=== PATIENT | male | born 1965 | race Hispanic/Latino ===

== ENCOUNTER 2017-03-23 12:30 | Emergency (ER) | payer MEDICAID, OTHER ==
[2017-03-23 12:30] VITALS: BMI 23.0
[2017-03-23 13:10] VITALS: BP 114/73; PULSE 66; RESP 20; TEMP 98.1; O2SAT 98
--- NOTE | 2017-03-23 13:28 | C.PDOC ---
History Of Present Illness 51 y/o male presents to ED with complaints of colic ellis umbilical pain since this morning. At ED patient states pain resolved prior to arrival and denies fever, chills, nausea, vomiting, back pain or any other complaints at this time. Time Seen by Provider: 03/23/17 13:17 Chief Complaint (Nursing): Abdominal Pain History Per: Patient History/Exam Limitations: no limitations Onset/Duration Of Symptoms: Hrs Current Symptoms Are (Timing): Still Present Location Of Pain/Discomfort: Periumbilical Past Medical History Reviewed: Historical Data, Nursing Documentation, Vital Signs Vital Signs: Last Vital Signs Temp 98.1 F 03/23/17 13:08 Pulse 66 03/23/17 13:08 Resp 20 03/23/17 13:08 BP 114/73 03/23/17 13:08 Pulse Ox 98 03/23/17 13:29 - Medical History PMH: No Chronic Diseases Surgical History: No Surg Hx - [facility] Procedures IMMOBILIZ/WOUND ATTN NEC (12/04/06) Family History: States: No Known Family Hx - Social History Hx Tobacco Use: Yes Hx Alcohol Use: Yes Hx Substance Use: Yes - Immunization History Hx Tetanus Toxoid Vaccination: No (not sure of last tetanus) Hx Influenza Vaccination: No Hx Pneumococcal Vaccination: No Review Of Systems Constitutional: Negative for: Fever, Chills Gastrointestinal: Positive for: Abdominal Pain. Negative for: Nausea, Vomiting Genitourinary: Negative for: Dysuria, Hematuria Musculoskeletal: Negative for: Back Pain Skin: Negative for: Rash Physical Exam - Physical Exam Appears: Non-toxic, No Acute Distress Skin: Warm, Dry, No Rash Head: Atraumatic, Normacephalic Oral Mucosa: Moist Neck: Normal ROM, Supple Cardiovascular: Rhythm Regular Respiratory: Normal Breath Sounds, No Rales, No Rhonchi, No Wheezing Gastrointestinal/Abdominal: Soft, No Guarding, No Rebound, Other (Dull to percussion, right abdomen tympanic) Extremity: Normal ROM, Capillary Refill (<2 seconds) Neurological/Psych: Oriented x3 ED Course And Treatment O2 Sat by Pulse Oximetry: 98 (RA) Pulse Ox Interpretation: Normal Medical Decision Making Medical Decision Making: periumbilical colic, resolved [employer]. dull to percussion in R abd, suspect constip pt agrees to empiric tx with laxative and return later PRN, declines w/u w informed consent. Disposition Doctor Will See Patient In The: Office Counseled Patient/Family Regarding: Studies Performed - Disposition Referrals: [facility] [Outside] Disposition: HOME/ ROUTINE Disposition Time: 13:29 Condition: GOOD Additional Instructions: trial a laxative now- 1 bottle of Mag Citrate- and re-eval after 2-3 bowel movements. Return to ED as needed continue diet and exercise changes as needed. Prescriptions: Magnesium Citrate [[facility] Magnesium Citrate] 300 ml PO ONCE PRN #1 bottle PRN Reason: Constipation Instructions: Constipation (ED), Gas and Bloating (ED) Forms: [employer] ([place]ese) - Clinical Impression Clinical Impression: Abdominal colic - Scribe Statement The provider has reviewed the documentation as recorded by the Scribotilia Selby All medical record entries made by the Isiahibe were at my direction and personally dictated by me. I have reviewed the chart and agree that the record accurately reflects my personal performance of the history, physical exam, medical decision making, and the department course for this patient. I have also personally directed, reviewed, and agree with the discharge instructions and disposition.
== END 2017-03-23 13:34 | disposition home or self-care (01) ==
LOC: C.ER 12:30
DX: R10.84 Generalized abdominal pain (principal)

== ENCOUNTER 2017-09-03 15:26 | Emergency (ER) | payer MEDICAID, OTHER ==
[2017-09-03 15:29] VITALS: BMI 23.7
[2017-09-03] MEDS ORDERED: Dexamethasone 4 mg/1 ml IM STA (15:56)
--- NOTE | 2017-09-03 16:57 | C.PDOC ---
History Of Present Illness 52-year-old male, presents to the emergency department with complaints of back pain to lower right back, radiating down right leg, ongoing for the past several days. Patient states it worsens with walking and movement. Denies numbness/weakness, bladder/bowel incontinence, nausea/vomiting, symptoms, dizziness, visual changes, facial droop or any other associated symptoms. No other complaints at this time,. Time Seen by Provider: 09/03/17 15:44 Chief Complaint (Nursing): Lower Extremity Problem/Injury History Per: Patient History/Exam Limitations: no limitations Current Symptoms Are (Timing): Still Present Severity: Moderate Pain Scale Rating Of: 7 Recent travel outside of the [place]: No Past Medical History Reviewed: Historical Data, Nursing Documentation, Vital Signs Vital Signs: Last Vital Signs Temp 98 F 09/03/17 17:13 Pulse 72 09/03/17 17:13 Resp 16 09/03/17 17:13 BP 128/78 09/03/17 17:13 Pulse Ox 97 09/03/17 21:50 - [facility] Procedures IMMOBILIZ/WOUND ATTN NEC (12/04/06) Family History: States: No Known Family Hx - Social History Hx Tobacco Use: Yes Hx Alcohol Use: Yes Hx Substance Use: Yes - Immunization History Hx Tetanus Toxoid Vaccination: No (not sure of last tetanus) Hx Influenza Vaccination: No Hx Pneumococcal Vaccination: No Review Of Systems Constitutional: Negative for: Fever, Chills Respiratory: Negative for: Cough, Shortness of Breath Gastrointestinal: Negative for: Nausea, Vomiting Musculoskeletal: Positive for: Back Pain Skin: Negative for: Rash Neurological: Negative for: Weakness, Numbness, Headache, Dizziness Physical Exam - Physical Exam Appears: Non-toxic, No Acute Distress Skin: Normal Color, Warm, Dry, No Rash Head: Atraumatic, Normacephalic Eye(s): bilateral: Normal Inspection, PERRL, EOMI Nose: Normal Oral Mucosa: Moist Lips: Normal Appearing Neck: Normal ROM, No Midline Cervical Tenderness, No Paracervical Tenderness, No Step Off Deformity, Supple Chest: Symmetrical, No Tenderness Cardiovascular: Rhythm Regular, No Friction Rub, No Murmur Respiratory: Normal Breath Sounds, No Accessory Muscle Use, No Rales, No Rhonchi Gastrointestinal/Abdominal: Soft, No Tenderness Back: No CVA Tenderness, Paraspinal Tenderness (Right, lumbar), Straight Leg Raising (Right) Extremity: Normal ROM, No Deformity, No Swelling Neurological/Psych: Oriented x3, Normal Speech Gait: Steady ED Course And Treatment O2 Sat by Pulse Oximetry: 97 (RA) Pulse Ox Interpretation: Normal Medical Decision Making Medical Decision Making: On re-exam, the patient reports improvement of symptoms. Lungs are CTA, heart is RRR, abdomen is soft, non-tender and tolerating PO well. Ambulatory in the ED with steady gait. Follow up with the medical doctor within 1-2 days without fail. Return if worsened. Disposition - Disposition Referrals: Rayo Polk MD [Non-Staff] - Disposition: HOME/ ROUTINE Disposition Time: 16:57 Condition: GOOD Additional Instructions: Follow up with the back specialist within 2-3 days. Return if worsened. Prescriptions: Cyclobenzaprine [Flexeril] 5 mg PO TID #21 tab Lidocaine 5% [Lidoderm] 1 each TP DAILY #10 patch Naproxen [Naprosyn] 500 mg PO BID #20 tab Instructions: Radiculopathy (DC) Forms: [employer] (Cam[place]onian) - Clinical Impression Clinical Impression: Lumbar radiculopathy - Scribe Statement The provider has reviewed the documentation as recorded by the Scribe (Angely Hansen) All medical record entries made by the Scribe were at my direction and personally dictated by me. I have reviewed the chart and agree that the record accurately reflects my personal performance of the history, physical exam, medical decision making, and the department course for this patient. I have also personally directed, reviewed, and agree with the discharge instructions and disposition.
[2017-09-03 17:14] VITALS: BP 128/78; PULSE 72; RESP 16; TEMP 98
[2017-09-03 21:47] VITALS: O2SAT 97
== END 2017-09-03 17:13 | disposition home or self-care (01) ==
LOC: C.ER 15:26
DX: M54.16 Radiculopathy, lumbar region (principal)
CPT/HCPCS: 96372; 99284; J1100; J1885